=== PATIENT | female | born 1970 | race Caucasian/White ===

== ENCOUNTER 2021-03-03 11:24 | Emergency (ER) | payer BC ==
[~2021-03-03] VITALS: Ht 162.6 cm; Wt 66.2 kg
--- NOTE | 2021-03-03 12:06 | NUR ---
patient came in to the er c/o dizziness and anxious. On room air, breathing evenly and unlabored. COnnected to the monitor and pulse ox. kept comfortable, will continue to monitor accordingly.
--- NOTE | 2021-03-03 12:16 | NUR ---
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
[2021-03-03 12:19] LABS: BASOPHILS % (AUTO) 0.5 % (0.0-2.0); EOSINOPHILS % (AUTO) 0.1 % (0.0-6.0); HEMATOCRIT 39 % (33-45); HEMOGLOBIN 13.2 g/dL (11.5-14.8); LYMPHOCYTES # (AUTO) 1.4 K/uL (0.8-4.8); LYMPHOCYTES % (AUTO) 14.4 % (20.0-44.0); MEAN CORPUSCULAR HGB CONC 34 g/dl (31.0-36.0); MEAN CORPUSCULAR VOLUME 92 fL (82-100); MONOCYTES # (AUTO) 0.4 K/uL (0.1-1.30); MONOCYTES % (AUTO) 3.7 % (2.0-12.0); NEUTROPHILS # (AUTO) 7.6 K/uL (1.8-8.9); NEUTROPHILS % (AUTO) 81.3 % (43.0-81.0); PLATELET COUNT (AUTO) 265 K/uL (150-450); RED BLOOD CELL COUNT(AUTO) 4.26 MIL/uL (4.0-5.2); WHITE BLOOD COUNT (AUTO) 9.4 K/uL (4.3-11.0)
[2021-03-03 12:26] LABS: CALCIUM, SERUM 8.6 mg/dL (8.5-10.1); CARBON DIOXIDE 23 mmol/L (21-32); CHLORIDE 106 mmol/L (98-107); CREATININE 0.8 mg/dL (0.6-1.3); GLUCOSE 151 mg/dL (74-106); POTASSIUM 4.1 mmol/L (3.5-5.1); SODIUM SERUM 141 mmol/L (136-145); UREA NITROGEN, BLOOD 12 mg/dL (7-18)
--- NOTE | 2021-03-03 12:51 | NUR ---
Patient discharged to home in stable condition. Written and verbal after care instructions given. Patient verbalizes understanding of instruction.
[2021-03-03 12:52] VITALS: BP 133/80
== END 2021-03-03 12:53 | disposition home or self-care (01) ==
LOC: ER 11:24
DX: F41.9 Anxiety disorder, unspecified (principal); Z88.0 Allergy status to penicillin
CPT/HCPCS: 36415; 71045-TC; 80048-TC; 84484-TC; 85025-TC